=== PATIENT | female | born 1950 | race Caucasian/White ===

== ENCOUNTER 2016-08-04 12:10 | Emergency (ER) | payer OTHER ==
--- NOTE | 2016-08-04 12:26 | CPEKG ---
Heart Rate: 67 RR Interval: 896 P-R Interval: 168 QRSD Interval: 92 QT Interval: 412 QTC Interval: 435 P [place]: 49 QRS [place]: -28 T Wave [place]: 3 EKG Severity - ABNORMAL ECG - EKG Impression: SINUS RHYTHM EKG Impression: PROBABLE LEFT ATRIAL ABNORMALITY EKG Impression: PROBABLE INFERIOR INFARCT, AGE INDETERMINATE Electronically Signed By: Param Mcgrath 04-Aug-2016 13:33:18
[2016-08-04 12:34] LABS: % IMMATURE GRANULYOCYTES 0.2 % (0.0-1.1); ABSOLUTE IMMATURE GRANULOCYTES 0.02 10^3/uL (0.00-0.10); ADD DIFF? NO; ADD MORPH? NO; ADD SCAN? NO; ATYPICAL LYMPHOCYTE FLAG 0 (0-99); FRAGMENT RBC FLAG 0 (0-99); HEMATOCRIT 46.4 % (38.0-47.0); HEMOGLOBIN 16.3 g/dL (12.6-16.3); LEFT SHIFT FLG 0 (0-99); LIPEMIA HEMOLYSIS FLAG 90 (0-99); MEAN CELL HEMOGLOBIN 33.8 pg (27.9-34.1); MEAN CELL HEMOGLOBIN CONCENTR. 35.1 g/dL (32.4-36.7); MEAN CELL VOLUME 96.3 fL (81.5-99.8); MEAN PLATELET VOLUME 9.7 fL (8.7-11.7); PLATELET CLUMPS FLAG 0 (0-99); PLATELET COUNT 280 10^3/uL (150-400); RED BLOOD CELL COUNT 4.82 10^6/uL (4.18-5.33); RED CELL DISTRIBUTION WIDTH 11.8 % (11.5-15.2)
[2016-08-04 12:53] LABS: ANION GAP 13 mEq/L (8-16); CALCIUM 9.3 mg/dL (8.5-10.4); CARBON DIOXIDE 21 mEq/l (22-31); CHLORIDE 107 mEq/L (97-110); CREATININE 0.8 mg/dL (0.6-1.0); GLOMERULAR FILTRATION RATE > 60; GLUCOSE 84 mg/dL (70-100); POTASSIUM 4.2 mEq/L (3.5-5.2); SODIUM 141 mEq/L (134-144)
--- NOTE | 2016-08-04 13:11 | EDPHY ---
HPI/HX/ROS/PE/MDM Narrative: CHIEF COMPLAINT: Episode of lightheadedness, left arm weakness, speech difficulty HPI: The patient is a 65 y/o female, who has a history of complex migraines, arriving with her complaining of an episode of lightheadedness, left arm weakness, and speech difficulty that lasted about 5 minutes at 11:30 today, almost 2 hours ago. She felt normal this morning while talking outside with a neighbor, but developed acute symptoms upon walking through her front door. She says her left arm "felt like it wasn't attached to me," felt lightheaded, experienced shortness of breath chest tightness. She sat down for a short time with no improvement in symptoms. She went to find her who described her as "shaking, weak, with difficulty speaking." The patient describes her speech as extremely slow and says she "knew the word I wanted to say, but had a difficult time saying it." She had associated symptom of "something in my mouth. " Her symptoms gradually improved and she currently only feels tired with a slight headache currently. She denies any loss of consciousness or pain. She denies preceding exertion or changes in her daily patterns. She reports this episode felt different from previous migraines. During migraines she says "the wrong word" whereas today she had "difficulty speaking at all." She notes her mother from a stroke and her dad of an FL and her brother who is a few years old had an FL recently. REVIEW OF SYSTEMS: Aside from elements discussed in the HPI, a comprehensive 10-point review of systems was reviewed and is negative. PMH: Complex migraines. FAMILY HISTORY: Mother of stroke. Father of FL. Brother, few years older than patient, had an FL last year. SOCIAL HISTORY: , at bedside. PHYSICAL EXAM: General:Patient is alert, in no acute distress. ENT:Eyes are normal to inspection. EOMI. ENT inspection normal. Neck: Normal inspection. Full range of motion. Respiratory:No respiratory distress. Breath sounds normal bilaterally. Cardiovascular: Regular rate and rhythm. Strong peripheral pulses. Normal cap refill. Abdomen:The abdomen is nontender to palpation. There are no peritoneal signs. There are normal bowel sounds. Back: Normal to inspection. No tenderness to palpation. Skin: Normal color. No rash. Warm and dry. Extremities: Normal appearance. Full range of motion. Neuro: Oriented x3. Normal motor function. Normal sensory function. No pronator drift. Normal straight-leg raise. ED Course: IV established. Labs drawn including CBC, CHEM, troponin, d-dimer. The 12 lead EKG was interpreted by myself. See hard copy and/or "tracemaster" electronic copy for interpretation. Study: Chest x-ray Indication: Dyspnea, chest tightness Results: Chest x-ray was obtained. My interpretation of the study is: negative. I viewed the images myself on the PACS system. Study: CT of the Head Indication: TIA symptoms Results: CT scan of the head was obtained. The results of the study are negative. The study was read by the radiologist, Dr. Finn. I viewed the images myself on the PACS system. 1415: I discussed work up with the patient and her . Her labs, EKG, chest x-ray, and head CT are all negative for acute process. I offered admission for further work up of possible TIA, which the patient declined. She plans to follow up with her PCP this week. She's also been referred to neurology for follow up. Return precautions given. MDM: This patient presents after 5 minute episode of an unusual constellation of symptoms including word-finding difficulty, an abnormal sensation in her mouth, possible left arm weakness and near-syncope. We performed an extensive workup including CTH, ECG, troponin, d-dimer, all of which are essentially normal. The patient is now asymptomatic with a normal exam. I offered her admission for observation and possible TIA workup, but she would like to go home. We discussed strict return precautions. The etiology of her symptoms is unclear, but given negative workup, I think TIA or complex migraine are the most likely scenarios. There is no evidence of PE, ACS, TAD, CVA or seizure. I have advised the patient to follow-up with her PCP immediately and to continue daily aspirin therapy. - Data Points Laboratory Results: Laboratory Results 08/04/16 12:23 08/04/16 12:23 08/04/16 12:23 WBC 8.82 10^3/uL (3.80-9.50) RBC 4.82 10^6/uL (4.18-5.33) Hgb 16.3 g/dL (12.6-16.3) Hct 46.4 % (38.0-47.0) MCV 96.3 fL (81.5-99.8) MCH 33.8 pg (27.9-34.1) MCHC 35.1 g/dL (32.4-36.7) RDW 11.8 % (11.5-15.2) Plt Count 280 10^3/uL (150-400) MPV 9.7 fL (8.7-11.7) Neut % (Auto) 57.6 % (39.3-74.2) Lymph % (Auto) 32.5 % (15.0-45.0) [place] % (Auto) 7.5 % (4.5-13.0) Eos % (Auto) 1.9 % (0.6-7.6) Baso % (Auto) 0.3 % (0.3-1.7) Nucleat RBC Rel Count 0.0 % (0.0-0.2) Absolute Neuts (auto) 5.07 10^3/uL (1.70-6.50) Absolute Lymphs (auto) 2.87 10^3/uL (1.00-3.00) Absolute Monos (auto) 0.66 10^3/uL (0.30-0.80) Absolute Eos (auto) 0.17 10^3/uL (0.03-0.40) Absolute Basos (auto) 0.03 10^3/uL (0.02-0.10) Absolute Nucleated RBC 0.00 10^3/uL (0-0.01) Immature Gran % 0.2 % (0.0-1.1) Immature Gran # 0.02 10^3/uL (0.00-0.10) D-Dimer 0.33 ug/mLFEU (0.00-0.50) Sodium 141 mEq/L (134-144) Potassium 4.2 mEq/L (3.5-5.2) Chloride 107 mEq/L (97-110) Carbon Dioxide 21 L mEq/l (22-31) Anion Gap 13 mEq/L (8-16) BUN 15 mg/dL (7-23) Creatinine 0.8 mg/dL (0.6-1.0) Estimated GFR > 60 Glucose 84 mg/dL (70-100) Calcium 9.3 mg/dL (8.5-10.4) Troponin I < 0.012 ng/mL (0-0.034) Medications Given: Discontinued Medications Sodium Chloride (Ns) 1,000 mls @ 0 mls/hr IV ONCE ONE PRN Reason: Wide Open Stop: 08/04/16 13:22 Last Admin: 08/04/16 14:14 Dose: Not Given General Time Seen by Provider: 08/04/16 13:03 Initial Vital Signs: Initial Vital Signs Temperature (C) 36.7 C 08/04/16 12:10 Heart Rate 69 08/04/16 12:10 Respiratory Rate 16 08/04/16 12:10 Blood Pressure 187/80 H 08/04/16 12:10 O2 Sat (%) 99 08/04/16 12:10 O2 Delivery Mode Room Air Allergies/Adverse Reactions: No Known Allergies Allergy (Unverified 08/04/16 12:21) Home Medications: Medication Instructions Recorded NK [No Known Home Meds] 08/04/16 Departure - Departure Disposition: Home, Routine, Self-Care Clinical Impression: TIA (transient ischemic attack) Condition: Good Instructions: Transient Ischemic Attack (ED) Additional Instructions: 1. Follow up with Dr. Dill, neurologist, within the next week. 2. Return to the ED for severe headache, weakness or numbness on one side of your body, vision changes, speech difficulty, or other worsening of condition. Referrals: RAHUL JOHNSON [Primary Care Provider] - As per Instructions Nate Dill MD [Medical Doctor] - As per Instructions Report Scribed for: Wesley Miranda Report Scribed by: Selam Askew Date of Report: 08/04/16 Time of Report: 13:08 Physician Review and Approval Statement: Portions of this note were transcribed by an ED scribe. I personally performed the history, physical exam, and medical decision making; and confirm the accuracy of the information in the transcribed note.
[2016-08-04] MEDS ORDERED: NS 1,000 ML IV ONE (13:21)
--- NOTE | 2016-08-04 13:51 | CT ---
CT Head, Without Contrast History: Transient left arm weakness. Lightheadedness. Technique: Standard noncontrast head CT protocol utilizing axial images acquired through the calvari um. Images were reconstructed down to 1.25-mm slice thickness as well. Radiation dose technique was u tilized. Findings: No evidence for intracranial mass, hemorrhage, or infarct. Minimal periventricular white ma tter change is seen bilaterally which could be seen with small vessel ischemic change or aging. Ventr icles, sulci, and cisterns are within normal limits for the patient's age. No evidence for an extraax ial fluid collection. No evidence for skull fracture. Paranasal sinuses are clear. Impression: No evidence for acute intracranial abnormality. Results called to Dr. Wesley Miranda on 04 August 2016 at 1345 hours.
--- NOTE | 2016-08-04 13:56 | DX ---
Chest, PA and Lateral History: Dyspnea, numbness, lightheaded Comparison: None Findings: Lungs are clear, without infiltrate or consolidation. Heart size is mildly enlarged. The pu lmonary vascularity is a little edema. The patient has a pectus excavatum deformity. There is no gillian opathy or mass lesion. There is no pleural effusion or pneumothorax. Orthopedic fusion hardware overl ies the low anterior cervical spine. Bones are unremarkable for age. EKG leads overlie the chest. Impression: Oligemia. Is the patient dehydrated or emphysematous? Results discussed with Dr. Wesely Miranda.
[2016-08-04 14:00] LABS: TROPONIN I < 0.012 ng/mL (0-0.034)
[2016-08-04 14:38] VITALS: BP 151/81; PULSE 59; RESP 18; TEMP 98.2; O2SAT 96
== END 2016-08-04 14:38 | disposition home or self-care (01) ==
LOC: EDUNIT#
DX: G45.9 Transient cerebral ischemic attack, unspecified (principal)

== ENCOUNTER → 2016-08-18 | Outpatient (CLI) | payer OTHER ==
--- NOTE | 2016-08-18 17:30 | MR ---
MRI of the Brain (Without Contrast) at hours Clinical Indications: G45.9-TRANSIENT CEREBRAL ISCHEMIC ATTACK, UNSPECIFIED, G43.109-MIGRAINE WITH AU RA, NOT INTRACTABLE, W/O STATUS [place], R56.9-UNSPECIFIED CONVULSIONS Comparison: CT brain August 04, 2016. Technique: T1-weighted images were acquired axially and sagittally from the foramen magnum to the ve rtex. Axial fast inversion recovery, fast T2-weighted, and diffusion-weighted axial images were obta ined without contrast. Findings: The ventricles, cisterns, and sulci are normal without atrophy, hydrocephalus, midline priti ft, herniation, or epidural/subdural hematomas. No intracranial hemorrhage or masses. Diffusion-weigh myra sequence demonstrates no acute infarct. Cerebellar tonsils are in normal position. Pituitary glan d is normal in size. Normal signal flow-void in the superior sagittal sinus, basilar artery, and bila teral internal carotid arteries indicating patency. Paranasal sinuses and mastoid air cells are clear . Impression: Normal MRI of the brain without contrast.
== END ==
LOC: FIMAGING 13:33
PROVIDERS: ATTEND Psychiatry & Neurology Neurology
DX: G45.9 Transient cerebral ischemic attack, unspecified (principal); G43.109 Migraine with aura, not intractable, without status migrainosus; R56.9 Unspecified convulsions

== ENCOUNTER → 2016-08-28 | Outpatient (CLI) | payer OTHER ==
--- NOTE | 2016-08-28 14:45 | CPEEG ---
[f rep st] ELECTROENCEPHALOGRAM SHORT-TERM VIDEO EEG DATE OF STUDY: 08/28/2016 DATE OF INTERPRETATION: 08/28/2016 INTERPRETATION: This short-term video EEG monitoring session is normal. There were no potentially epileptogenic abnormalities present during the awake or sleep recordings. During the video EEG gregorio toring session, the patient did not have any clinical events. REPORT: This short-term video EEG contains 9 Hz alpha activity to the posterior head regions. Ther e was no abnormal activation at rest, during photic stimulation or hyperventilation. The patient be came drowsy and intermittently fell into light sleep during the study. There was no abnormal activa tion during drowsiness, light sleep, or during times of arousal. During the video EEG monitoring se ssion, the patient did not have any clinical events. /[id number]/MODL
== END ==
LOC: FCPNEURO 08:45
PROVIDERS: ATTEND Psychiatry & Neurology Neurology
DX: G45.9 Transient cerebral ischemic attack, unspecified (principal); G43.109 Migraine with aura, not intractable, without status migrainosus; R56.9 Unspecified convulsions

== ENCOUNTER → 2016-09-06 | Outpatient (CLI) | payer OTHER ==
[~2016-09-06] MED LIST: IOPAMIDOL (ISOVUE-370) 150 ML BTL IV ONE
== END ==
LOC: FIMAGING 13:41
PROVIDERS: ATTEND Internal Medicine Cardiovascular Disease
DX: M50.321 Other cervical disc degeneration at C4-C5 level (principal); M48.02 Spinal stenosis, cervical region; Z98.1 Arthrodesis status
CPT/HCPCS: Q9967

== ENCOUNTER → 2017-04-18 | Outpatient (CLI) | payer OTHER | LOC: FIMAGING 09:49 | PROVIDERS: ATTEND Internal Medicine | DX: Z12.31 Encounter for screening mammogram for malignant neoplasm of breast (principal) | CPT/HCPCS: G0202 ==

== ENCOUNTER → 2017-05-18 | Outpatient (CLI) | payer OTHER | LOC: FIMAGING 08:53 | PROVIDERS: ATTEND Internal Medicine | DX: M72.2 Plantar fascial fibromatosis (principal) ==

== ENCOUNTER → 2018-06-04 | Outpatient (CLI) | payer OTHER | LOC: FIMAGING 12:57 | PROVIDERS: ATTEND Internal Medicine | DX: Z12.31 Encounter for screening mammogram for malignant neoplasm of breast (principal); Z13.820 Encounter for screening for osteoporosis; M85.89 Other specified disorders of bone density and structure, multiple sites ==